=== PATIENT | male | born 1985 | race Caucasian/White ===

== ENCOUNTER → 2016-06-20 | Day surgery (SDC) | payer OTHER ==
[~2016-06-20] VITALS: Ht 182.9 cm; Wt 131.5 kg
--- NOTE | 2016-06-20 12:14 | Operative Report ---
Operative/Inv Procedure Report Surgery Date: 06/20/16 Name of Procedure: Exam under anesthesia Partial fistulotomy complex Placement of seton drain Pre-Operative Diagnosis: Recurrent perirectal abscess Post-Operative Diagnosis: Recurrent perirectal abscess/trans-sphincteric anal fistula Estimated Blood Loss: scant Surgeon/Fine Patcher: JODRAN BAEZ DO,ARJUN [place] MS-3 Anesthesia: laryngeal mask airway, block Monitors: Per routine Drains: Seton Specimens: Fistula tract Complications: None Condition: Good Operative Indication: This is a 30-year-old male with history of recurrent perianal abscess. Abscess always occurs in the same location. He has multiple procedures because of this. He recently had an MRI developed recurrent symptoms which showed an abscess which abutted the anal sphincter complexus but did not have clear communication to the mucosa. This abscess spontaneously bursa and I saw him in the office. He was still having significant drainage and discomfort so we decided to schedule an urgent trip to the operating room for exam under anesthesia and possible fistulotomy. Operative/Procedure Note Note: The patient was taken into the operating room placed in the supine position on operating room table. He underwent induction of general anesthesia and placement of laryngeal mask airway then was converted to lithotomy position in [facility]. The perineum was prepped and draped in usual fashion. A block was performed using 0.5% Marcaine with epinephrine, a total of 40 mL was injected. Next I gently dilated the anal canal Fansler operating proctoscope was placed into the anal canal. I inspected the anal canal quadrant by quadrant in the right anterior quadrant at the level of the dentate line appeared to be scarred tissue. This coincided with the same quadrant as the recent abscess. A pursestring suture was a strongly external opening of the fistula. A large angiocatheter was placed into this external opening and then 20 mL of peroxide was forcibly injected into the tract. At this point I could see bubbling of peroxide in the right anterior anal canal at the level of the dentate line where the previously mentioned scar was. A probe was placed through the tract and using gentle pressure advanced the probe until I was able to get the tip of the probe to emerged at the involved crypt gland. A Silastic vessel loop was pulled through the tract to create a seton drain. A portion of the fistula tract was divided starting at this external opening and moving towards the anal canal. I stopped dividing the tissue when I reached fibers of the external anal sphincter. The fistula tract was aggressively curetted. I then achieved hemostasis with electrocautery. The fistula skin edges were marsupialized to the base of the tract with 2-0 Vicryl suture. At this point the Fansler proctoscope was removed. The tails of the seton vein were tied together with 2- 0 silk sutures. The procedure was concluded. The perineum was cleansed and dried. Bacitracin ointment and a bulky gauze dressing were applied. The patient was converted to the supine position extubated in the operating room and taken to recovery area in good condition. He tolerated the procedure well. At the end of his operational needle sponges Schmidts were accounted for. Findings: Trans-sphincteric fistula tract, right anterior anal canal Discharge Disposition: PACU
== END ==
LOC: STS 07:00
DX: K61.1 Rectal abscess (principal); K60.3 Anal fistula
CPT/HCPCS: 88304; J2250

== ENCOUNTER → 2016-08-28 | Day surgery (SDC) | payer OTHER ==
[~2016-08-28] VITALS: Ht 180.3 cm; Wt 127.0 kg
--- NOTE | 2016-08-28 12:59 | Operative Report ---
Operative/Inv Procedure Report Surgery Date: 08/28/16 Name of Procedure: LIFT ( ligation of intersphincteric fistula tract) repair of anal fistula Pre-Operative Diagnosis: Trans-sphincteric anal fistula Post-Operative Diagnosis: Transsphincteric anal fistula Estimated Blood Loss: scant Surgeon/Dairy Feed Mixing Operator: ARJUN ORTEGA JR, DO Anesthesia: general endotracheal tube Monitors: Per routine Implants: None Drains: Red rubber catheter in external portion of fistula tract Specimens: None Complications: None Condition: Good Operative Indication: This is a 30-year-old gentleman with history of recurrent rectal abscess. During his most recent occurrence he had exam under anesthesia. At the time of that exam the internal opening of the fistula was delineated and a seton drain was placed. This allowed to recover for 6 weeks. He presents today for definitive repair of his anal fistula. Operative/Procedure Note Note: Patient was taken into the operating room. Patient received IV antibiotics prior to induction of general anesthesia. Patient underwent induction of general anesthesia placement of endotracheal tube on a stretcher adjacent to the operating table. Next the patient was converted to the prone jackknife position on the operating room table. We were careful to protect his airway and spine during the transfer. All bony prominences were padded. Next the gluteal cleft was taped in the abducted position. The perineum was prepped and draped in usual fashion. An anal block was performed using 0.5% Marcaine with epinephrine. A total of 30 mL was injected. A general digital dilation of the anal canal was performed. A Fansler operating proctoscope was placed into the anal canal and aligned with the fistula in the anterior right quadrant. A 10 Welsh red rubber catheter was tied to the seton that had been previously placed. A seton was cut and the red rubber catheter was pulled into the tract. I made sure that this catheter did not traverse intra-sphincteric space. Catheter was secured to the skin with nylon suture. A curved incision made along the anterior silva-circumference of the anal verge. Using accommodation of blunt dissection and electrocautery expose the sphincter mechanism. I then identified the intersphincteric groove and bluntly developed intersphincteric space until I was cephalad to the fistula tract. 2-0 Vicryl suture was then looped around the tract in a Jarquin fashion. The tract was then sharply divided in the intersphincteric space. On the external sphincter side of the space the track was closed with a running locking 3-0 Vicryl suture. Peroxide was injected through the red rubber catheter prior to closure identify the fistula site. I can easily see the peroxide bubbling into the intersphincteric space. We injected the peroxide again after repair and there was no peroxide bubbling in the intersphincteric space indicating that we had sealed this tracked well. At this point a copious irrigated the incision and inspected for hemostasis. Hemostasis was good. The incision was then closed in layers. A deep dermal interrupted 2-0 Vicryl layer was placed first. The skin was then closed with 2- 0 Vicryl in a vertical mattress fashion. At this point the procedure was concluded. The perineum was cleansed and dried. Bacitracin ointment and a bulky gauze dressing was applied. The patient was extubated in the operating room after being converted to the supine position. Patient tolerated procedure well taken recovery area in good condition. At the end was operational needle sponges and attachments were accounted for. Findings: Trans-sphincteric anal fistula Discharge Disposition: PACU Additional Comments: The red rubber catheter drain will be removed early next week in the office
== END ==
LOC: STS 08-26 07:00
DX: K60.3 Anal fistula (principal)
CPT/HCPCS: J0131; J0690; J2250

== ENCOUNTER 2016-09-06 04:50 | Emergency (ER) | payer OTHER ==
[~2016-09-06] VITALS: Ht 177.8 cm; Wt 113.4 kg
[2016-09-06 05:06] VITALS: BP 141/73
--- NOTE | 2016-09-06 05:38 | ED GI/GU/ABDOMINAL COMPLAINT ---
History of Present Illness General Chief Complaint: General Adult Stated Complaint: SUTURE RUPTURE S/P SUGERY ON BOTTOM Source: patient Exam Limitations: no limitations Vital Signs & Intake/Output Vital Signs & Intake/Output Vital Signs Date Time Temp Pulse Resp B/P Pulse O2 O2 Flow FiO2 Ox Delivery Rate 09/06 0506 97.8 95 20 141/73 98 Room Air Allergies Coded Allergies: No Known Allergies (06/19/16) Triage Note: PT TO ED C/O ?SURGICAL TEAR. PT STATES HE HAD A "LIFT" PROCEDURE ON THURSDAY (FISTULA IN ANUS). PT STATES HE WAS TAKING A SHOWER WHEN A SUTURE FELL OUT, SMALL AMOUNT OF BLEEDING, AND RELEASE OF WHAT FELT LIKE TENSION. PT TEARFUL ON ARRIVAL, DENIES PAIN. Triage Nurses Notes Reviewed? yes Onset: Abrupt Timing: single episode today Activities at Onset: rest HPI: Patient presents for evaluation of a possible torn suture status post "lift procedure" about 10 days ago. Patient states that tonight he felt something give. He states since then he has had mild perirectal pain but only a slight amount of bleeding. States the procedure was done by Dr. Martinez. He has been applying bacitracin and gauze dressings although he has begun to have a rash between the buttocks and he is now converted over to using an antifungal cream. Past History Travel History Traveled to [place] past 21 day No Medical History Any Pertinent Medical History? see below for history Surgical History Surgical History: non-contributory Psychosocial History What is your primary language Colombian Tobacco Use: Current Not Daily Family History Hx Contributory? No Review of Systems Review of Systems Constitutional: Reports: no symptoms. EENTM: Reports: no symptoms. Respiratory: Reports: no symptoms. Cardiovascular: Reports: no symptoms. GI: Reports: see HPI. Genitourinary: Reports: no symptoms. Musculoskeletal: Reports: no symptoms. Skin: Reports: no symptoms. Neurological/Psychological: Reports: no symptoms. Hematologic/Endocrine: Reports: no symptoms. Immunologic/Allergic: Reports: no symptoms. All Other Systems: Reviewed and Negative Physical Exam Physical Exam Gastrointestinal: SEE BELOW Comments: Gen.: Well-nourished, well-developed, no acute respiratory distress. Head: Normocephalic, atraumatic. Eyes: Normal inspection bilaterally Ears: Normal inspection bilaterally Nose: Normal inspection Throat/mouth : Moist mucosa Neck: Supple, full range of motion, no goiter Lungs: Quiet respirations Back: Normal range of motion Abdomen: Soft, nontender, nondistended, normal bowel sounds Extremities: Normal range of motion grossly, equal radial pulses, no cyanosis clubbing or edema Neurologic: Cranial nerves grossly intact, speech is clear Skin: warm and dry Psychiatric: Calm, cooperative, no apparent delusions or hallucinations Rectal: There is a slight tear/opening of the perirectal soft tissues with no active bleeding or signs of infection. There is a mild rash at the base of both buttocks. Core Measures ACS in differential dx? No Severe Sepsis Present: No Septic Shock Present: No Progress Differential Diagnosis: broken/torn suture, perirectal abscess, fistula formation Plan of Care: Follow-up patient's colorectal surgeon Initial ED EKG: none Departure Departure Disposition: HOME OR SELF CARE Condition: Stable Clinical Impression Primary Impression: Broken suture Qualifiers: Encounter type: initial encounter Qualified Code: T81.31XA - Disruption of external operation (surgical) wound, not elsewhere classified, initial encounter Referrals: JOSEFINA OLSON MD (PCP/Family) Additional Instructions: Continue current care. Low residue diet (avoid fiber rich foods and binding foods such as bananas). Follow-up with Dr. Martinez on Thursday. Return if any concerns or sudden worsening. Thank you for choosing the [facility] for your care. It was a pleasure to serve you today. Nathaniel Rivera M.D. [facility] Departure Forms: Customer Survey General Discharge Information
== END 2016-09-06 05:50 ==
LOC: ERH 04:50
DX: T81.31XA Disruption of external operation (surgical) wound, not elsewhere classified, initial encounter (principal)